=== PATIENT | female | born 1960 | race African-American/Black ===

== ENCOUNTER 2023-01-02 08:23 | Emergency (ER) | payer OTHER, SELFPAY ==
[2023-01-02] MEDS ORDERED: Dexamethasone 4 MG TAB ONE (10:15)
== END 2023-01-02 10:24 | disposition home or self-care (01) ==
LOC: CSHERS 08:23
DX: J02.9 Acute pharyngitis, unspecified (principal); I10 Essential (primary) hypertension; E78.5 Hyperlipidemia, unspecified; F17.210 Nicotine dependence, cigarettes, uncomplicated
CPT/HCPCS: 36416; 87081; 87430; 99283; J8540

== ENCOUNTER 2025-04-14 16:47 | Inpatient (IN) | payer BC, MEDICARE, OTHER ==
[2025-04-14] MEDS ORDERED: Dexamethasone 10 MG/ML VIAL ONE (17:11)
[2025-04-14 17:25] LABS: #Basophils Less than 0.03 10x3/uL (0.0-0.2); #Eosinophils 0.18 10x3/uL (0.0-0.5); #Monocytes 1.25 10x3/uL (0.0-1.1); #Neutrophils 7.41 10x3/uL (1.5-8.4); %Basophils 0.2 % (0.0-2.0); %Eosinophils 1.7 % (0.0-6.0); %Lymphocytes 16.7 % (18.0-47.0); %Monocytes 11.7 % (0.0-10.0); %Neutrophils 69.3 % (40.0-75.0); Hematocrit 38.0 % (34.9-44.5); Hemoglobin 12.3 g/dL (12.0-15.5); Mean Corpuscular Hemoglobin 23.4 pg (27.0-33.0); Mean Corpuscular Volume 72.4 fL (81.6-98.3); Platelet Count 331 10x3/uL (150-450); Red Blood Cell (RBC) Count 5.25 10x6/uL (3.90-5.03); White Blood Cell (WBC) Count 10.68 10x3/uL (3.5-10.5)
[2025-04-14 18:04] LABS: Troponin I Less than 0.010 ng/mL (< 0.028)
[2025-04-14 18:06] LABS: ALT (SGPT) 13 U/L (Less than 34); AST (SGOT) 20 U/L (11-34); Albumin 3.0 g/dL (3.1-4.5); Alkaline Phosphatase 62 U/L (40-110); Anion Gap 14 mmol/L (10-20); BUN (Urea Nitrogen) 5 mg/dL (9.8-20.1); Bilirubin, Total 0.2 mg/dL (0.3-1.2); Calc. Creatinine Clearance 0 mL/min (70-130); Calcium 8.3 mg/dL (7.8-10.44); Carbon Dioxide 28 mmol/L (23-31); Chloride 105 mmol/L (98-107); Globulin 2.5 g/dL (2.4-3.5); Glucose 111 mg/dL (80-115); Potassium 3.5 mmol/L (3.5-5.1); Sodium 143 mmol/L (136-145)
[2025-04-14 21:01] LABS: ALV-art Gradient 25.955 mmHg (0-20); Actual Bicarbonate (HCO3a) 34.5 mEq/L (22-28); Analyzer IN Cardio CS ER; Base Excess (BEa) 7.5 mEq/L (-2.0 to +3.0); CO2 Tension 58.7 mmHg (35.0-45.0); Calcium, Ionized (arterial) 1.12 mmol/L (1.12-1.30); Hematocrit-ABG 41 % (36.0-47.0); Hemoglobin (Hb) 14.1 g/dL (12.0-16.0); O2 Tension (PaO2), arterial 50.4 mmHg (> 80.0); Potassium - ABG Lab 3.46 mmol/L (3.70-5.30); Puncture Site Right Brachial art; pH, Arterial 7.387 (7.35-7.45)
[2025-04-14] MEDS ORDERED: Acetaminophen 325 MG TAB PO PRN (21:05)
[2025-04-14] MEDS ORDERED: Ondansetron PF 4 MG/2 ML Vial IVP PRN (21:05)
[2025-04-14] MEDS ORDERED: Azithromycin 500 MG VIAL ONE (21:16)
[2025-04-14] MEDS ORDERED: Albuterol 2.5 MG (3 mL) NEB ONE (21:20)
[2025-04-14] MEDS ORDERED: Ketorolac Tromethamine 30 MG (1 mL) VIAL IVP PRN (21:26)
[2025-04-14] MEDS ORDERED: cefTRIAXone (ROCEPHIN) 1 GM VIAL ONE (22:09)
[2025-04-14] MEDS: Azithromycin 500 MG in Sodium Chloride 0.9% 250 ML 250 ML IVPB SCH (22:25)
[2025-04-14] MEDS: cefTRIAXone\\ROCEPHIN 1 GM in Sodium Chloride 0.9% 100 ML IVPB SCH (22:26)
[2025-04-14] MEDS ORDERED: hydrALAZINE 20 MG/ML VIAL SLOW IVP PRN (22:48)
[2025-04-15 00:13] VITALS: BP 165/94; TEMP 98.4
[2025-04-15 01:08] LABS: Actual Bicarbonate (HCO3a) 29.9 mEq/L (22-28); Analyzer IN Cardio CS ICU; Base Excess (BEa) 3.2 mEq/L (-2.0 to +3.0); CO2 Tension 54.8 mmHg (35.0-45.0); Calcium, Ionized (arterial) 1.14 mmol/L (1.12-1.30); Hematocrit-ABG 40 % (36.0-47.0); Hemoglobin (Hb) 13.6 g/dL (12.0-16.0); O2 Tension (PaO2), arterial 78.5 mmHg (> 80.0); Potassium - ABG Lab 3.50 mmol/L (3.70-5.30); Puncture Site Right Brachial art; pH, Arterial 7.355 (7.35-7.45)
[2025-04-15 07:26] LABS: #Basophils Less than 0.03 10x3/uL (0.0-0.2); #Eosinophils Less than 0.03 10x3/uL (0.0-0.5); #Monocytes 0.28 10x3/uL (0.0-1.1); #Neutrophils 10.30 10x3/uL (1.5-8.4); %Basophils 0.2 % (0.0-2.0); %Eosinophils 0.1 % (0.0-6.0); %Lymphocytes 8.7 % (18.0-47.0); %Monocytes 2.4 % (0.0-10.0); %Neutrophils 88.2 % (40.0-75.0); Hematocrit 41.1 % (34.9-44.5); Hemoglobin 13.1 g/dL (12.0-15.5); Mean Corpuscular Hemoglobin 23.3 pg (27.0-33.0); Mean Corpuscular Volume 73.1 fL (81.6-98.3); Platelet Count 360 10x3/uL (150-450); Red Blood Cell (RBC) Count 5.62 10x6/uL (3.90-5.03); White Blood Cell (WBC) Count 11.67 10x3/uL (3.5-10.5)
[2025-04-15 07:42] LABS: ALT (SGPT) 10 U/L (Less than 34); AST (SGOT) 17 U/L (11-34); Albumin 3.1 g/dL (3.1-4.5); Alkaline Phosphatase 62 U/L (40-110); Anion Gap 12 mmol/L (10-20); BUN (Urea Nitrogen) 8 mg/dL (9.8-20.1); Bilirubin, Total 0.2 mg/dL (0.3-1.2); Calc. Creatinine Clearance 0 mL/min (70-130); Calcium 8.7 mg/dL (7.8-10.44); Carbon Dioxide 31 mmol/L (23-31); Chloride 104 mmol/L (98-107); Globulin 3.1 g/dL (2.4-3.5); Glucose 166 mg/dL (80-115); Potassium 4.0 mmol/L (3.5-5.1); Sodium 143 mmol/L (136-145)
[2025-04-15] MEDS ORDERED: Famotidine 20 MG TAB PO SCH (09:00)
[2025-04-15] MEDS ORDERED: Famotidine/PF 20 mg/2ml Vial SLOW IVP SCH (09:00)
[2025-04-15] MEDS ORDERED: Enoxaparin 40 MG (0.4 mL) SYRINGE SC SCH (09:00)
[2025-04-15] MEDS ORDERED: hydrALAZINE 20 MG/ML VIAL SLOW IVP PRN (09:32)
[2025-04-15] MEDS ORDERED: Famotidine 20 MG TAB ONE (09:52)
[2025-04-16 10:07] LABS: Actual Bicarbonate (HCO3v) 30.9 mEq/L (22-28); Analyzer IN Cardio CS ER; Base Excess 6.2 mEq/L (-2 - +2); Calcium, Ionized (venous) 1.02 mmol/L (1.16-1.32); Chloride (VBG) 104 mmol/L (98-106); Hematocrit-VBG 40 % (36.0-47.0); Hemoglobin (Hb) 13.7 g/dL (11.7-16.0); Potassium (VBG) 3.25 mmol/L (3.70-5.30); Puncture Site Other Site; RapidComm Collect By LAb; Sodium 140 mmol/L (133-146)
[2025-04-16 10:08] LABS: Actual Bicarbonate (HCO3v) 33.2 mEq/L (22-28); Analyzer IN Cardio CS ER; Base Excess 6.7 mEq/L (-2 - +2); Calcium, Ionized (venous) 1.08 mmol/L (1.16-1.32); Chloride (VBG) 103 mmol/L (98-106); Hematocrit-VBG 40 % (36.0-47.0); Hemoglobin (Hb) 13.7 g/dL (11.7-16.0); Potassium (VBG) 3.55 mmol/L (3.70-5.30); Puncture Site Other Site; RapidComm Collect By lab; Sodium 141 mmol/L (133-146)
== END 2025-04-15 16:43 | disposition home or self-care (01) | DRG 871 ==
LOC: CSHERS 16:47 → CSHERHOLD 21:07
PROVIDERS: ADMIT Internal Medicine; ATTEND Hospitalist
DX: A41.9 Sepsis, unspecified organism (principal); J96.21 Acute and chronic respiratory failure with hypoxia; J44.1 Chronic obstructive pulmonary disease with (acute) exacerbation; E66.2 Morbid (severe) obesity with alveolar hypoventilation; I10 Essential (primary) hypertension; Z88.8 Allergy status to other drugs, medicaments and biological substances; E78.5 Hyperlipidemia, unspecified; J44.89 Other specified chronic obstructive pulmonary disease; R60.0 Localized edema
CPT/HCPCS: 36415; 36600; 71045; 80053; 82805; 83880; 84443; 84484; 85025; 85379; 87040; 87428; 93005; 93970; 94640; 94660; 94760; 96374; 96375; J0456; J0696; J1100; J2919; J7611; J7626

== ENCOUNTER 2025-05-17 14:09 | Emergency (ER) | payer BC ==
[2025-05-17 15:11] LABS: ALT (SGPT) 14 U/L (Less than 34); AST (SGOT) 20 U/L (11-34); Albumin 3.2 g/dL (3.1-4.5); Alkaline Phosphatase 70 U/L (40-110); Anion Gap 11 mmol/L (10-20); BUN (Urea Nitrogen) 8 mg/dL (9.8-20.1); Bilirubin, Total 0.1 mg/dL (0.3-1.2); Calc. Creatinine Clearance 0 mL/min (70-130); Calcium 9.2 mg/dL (7.8-10.44); Carbon Dioxide 31 mmol/L (23-31); Chloride 105 mmol/L (98-107); Globulin 2.6 g/dL (2.4-3.5); Glucose 122 mg/dL (80-115); Potassium 3.2 mmol/L (3.5-5.1); Sodium 144 mmol/L (136-145)
[2025-05-17 15:12] LABS: #Basophils Less than 0.03 10x3/uL (0.0-0.2); #Eosinophils 0.09 10x3/uL (0.0-0.5); #Monocytes 0.90 10x3/uL (0.0-1.1); #Neutrophils 6.40 10x3/uL (1.5-8.4); %Basophils 0.2 % (0.0-2.0); %Eosinophils 0.9 % (0.0-6.0); %Lymphocytes 22.0 % (18.0-47.0); %Monocytes 9.4 % (0.0-10.0); %Neutrophils 67.2 % (40.0-75.0); Hematocrit 35.9 % (34.9-44.5); Hemoglobin 11.5 g/dL (12.0-15.5); Mean Corpuscular Hemoglobin 23.1 pg (27.0-33.0); Mean Corpuscular Volume 72.2 fL (81.6-98.3); Platelet Count 411 10x3/uL (150-450); Red Blood Cell (RBC) Count 4.97 10x6/uL (3.90-5.03); White Blood Cell (WBC) Count 9.54 10x3/uL (3.5-10.5)
[2025-05-17 15:19] LABS: Troponin I Less than 0.010 ng/mL (< 0.028)
== END 2025-05-17 17:57 | disposition home or self-care (01) ==
LOC: CSHERS 14:09
DX: J44.1 Chronic obstructive pulmonary disease with (acute) exacerbation (principal); I10 Essential (primary) hypertension; E78.5 Hyperlipidemia, unspecified; F17.210 Nicotine dependence, cigarettes, uncomplicated
CPT/HCPCS: 71045; 80053; 83880; 84484; 85025; 93005; 96374; J2919